=== PATIENT | female | born 1980 | race Caucasian/White ===

== ENCOUNTER → 2017-05-13 | Outpatient (CLI) | payer BC ==
--- NOTE | 2017-05-13 17:32 | RADIOLOGY IMAGING REPORT ---
FACILITY: [facility] [place] PATIENT NAME: WILLIAM GRIFFITHS : [id number] MR: [id number] V: [id number] EXAM DATE: ORDERING PHYSICIAN: JIL MIMS TECHNOLOGIST: Kay Pierre PROCEDURE:BILATERAL DIAGNOSTIC DIGITAL MAMMOGRAM COMPARISON:None. INDICATIONS:BREAST PAIN MEDIAL INFERIOR LEFT BREAST. SYMPTOMS ARE IMPROVING FINDINGS: A small amount of fibroglandular tissue is seen throughout the breasts. There is no evidence of malignant appearing mass, malignant appearing calcifications or other secondary sign of malignancy in either breast. DIAGNOSTIC CATEGORY 1--NEGATIVE. RECOMMENDATIONS: CLINICAL EVALUATION. IMPRESSION: BIRADS 1: Negative No significant abnormality is seen Dictated by: Jennifer Silva M.D. on 05/13/2017 at 11:04 Transcribed by: ANALI on 05/13/2017 at 13:19 Approved by: Jennifer Silva M.D. on 05/13/2017 at 17:31 [facility]
== END ==
LOC: MAMO 10:11
PROVIDERS: ATTEND Physician Assistant
DX: N64.4 Mastodynia (principal)
CPT/HCPCS: 77062; 77066